=== PATIENT | male | born 1985 | race Hispanic/Latino ===

== ENCOUNTER 2020-06-17 19:18 | Emergency (ER) | payer SELFPAY ==
[~2020-06-17] VITALS: Ht 177.8 cm; Wt 109.0 kg
[2020-06-17 20:45] VITALS: BP 153/96
== END 2020-06-17 20:45 | disposition home or self-care (01) | DRG 605 ==
LOC: ED 19:18
PROC: 0HQFXZZ Repair Right Hand Skin, External Approach (ICD-10-PCS; principal; 2020-06-17)
DX: S61.011A Laceration without foreign body of right thumb without damage to nail, initial encounter (principal); W26.0XXA Contact with knife, initial encounter; Y93.G3 Activity, cooking and baking; Y92.000 Kitchen of unspecified non-institutional (private) residence as the place of occurrence of the external cause